=== PATIENT | male | born 1955 | race Two or more races ===

== ENCOUNTER 2021-09-09 07:10 | Inpatient (IN) | payer MEDICARE, MEDICAID ==
[~2021-09-09] VITALS: Ht 167.6 cm; Wt 54.4 kg
[2021-09-09] MEDS ORDERED: DEXTROSE 50% WATER 50ML SYRINGE IV ONE (08:00)
[2021-09-09] MEDS ORDERED: VANCOMYCIN 1G PREMIX 200 ML IV ONE (08:30)
[2021-09-09] MEDS ORDERED: SODIUM CHLORIDE 0.9% 1000ML BAG (SEPSIS BOLUS) IV ONE (08:30)
[2021-09-09] MEDS ORDERED: PIPERACILLIN/TAZ 3.375G PREMIX 50 ML IV ONE (08:30)
[2021-09-09 08:43] LABS: BASOPHILS % 0.3 % (0.0-2.0); EOSINOPHILS % 0.8 % (0.0-5.0); HEMATOCRIT. 21.6 % (42.0-52.0); HEMOGLOBIN. 7.3 g/dL (14.0-18.0); LYMPHOCYTES % 8.9 % (20.0-50.0); MEAN CORPUSCULAR HEMOGLOBIN 34.1 pg (28.0-32.0); MEAN CORPUSCULAR VOLUME 100.3 fL (80.0-94.0); MONOCYTES % 3.4 % (2.0-8.0); NEUTROPHILS % 86.6 % (40.0-76.0); PLATELET 79 x1000/uL (130-400); RED BLOOD CELL COUNT 2.15 mill/uL (4.7-6.1); RED CELL DISTRIBUTION WIDTH 22.5 % (11.6-14.6)
[2021-09-09 09:13] LABS: CLARITY URINE TURBID (CLEAR); COLOR URINE DARK YELLOW (YELLOW); KETONES URINE NEGATIVE (NEGATIVE); LEUKOCYTE ESTERASE URINE TRACE (NEGATIVE); NITRITE URINE NEGATIVE (NEGATIVE); OCCULT BLOOD URINE NEGATIVE (NEGATIVE); PROTEIN URINE NEGATIVE (NEGATIVE); SPECIFIC GRAVITY URINE 1.011 (1.005-1.030)
[2021-09-09 09:26] LABS: PLATELET ESTIMATE DECREASED
[2021-09-09] MEDS ORDERED: DEXT 10% WATER 1,000 ML IV STA (09:49)
[2021-09-09 10:23] LABS: INR 1.5; PARTIAL THROMBOPLASTIN TIME 49.3 sec (23.4-31.0)
[2021-09-09] MEDS ORDERED: GUAIFENESIN 200MG/10ML SUGAR FREE UDC PO PRN (10:45)
[2021-09-09] MEDS ORDERED: CLONIDINE 0.1MG TABLET PO PRN (10:45)
[2021-09-09] MEDS ORDERED: NITROGLYCERIN 0.4MG TABLET SL SL PRN (10:45)
[2021-09-09] MEDS ORDERED: ONDANSETRON HCL 4MG/2ML INJ IV PRN (10:45)
[2021-09-09] MEDS ORDERED: MAGNESIUM/ALUMINUM HYDROXIDE/SIMETHICONE 30ML UDC PO PRN (10:45)
[2021-09-09] MEDS ORDERED: DOCUSATE SODIUM 100MG CAPSULE PO PRN (10:45)
[2021-09-09] MEDS ORDERED: CEFTRIAXONE 1 G PREMIX 50 ML IV SCH (11:00)
[2021-09-09 11:10] LABS: ETHANOL BLOOD < 10 mg/dL
[2021-09-09 11:13] LABS: TOTAL IRON BINDING CAPACITY 162 ug/dL (250-450)
[2021-09-09] MEDS: DEXT 5%/LACTATED RINGERS 1,000 ML IV SCH (11:30)
[2021-09-09 11:31] LABS: FOLIC ACID (FOLATE) SERUM 4.1 ng/mL (>5.38)
[2021-09-09] MEDS: LACTULOSE 20G/30ML UDC PO SCH ×3 (12:06→20:43)
[2021-09-09] MEDS: INSULIN LISPRO 100 UNITS/ML SUBCUT SCH ×2 (13:20→20:48)
[2021-09-09] MEDS: BLOOD SUGAR DIAGNOSTIC STRIP TEST SCH ×3 (13:48→20:48)
[2021-09-09] MEDS ORDERED: LIDOCAINE HCL/PF 1% 10 MG/ML 5ML VIAL ONE ×2 (14:14→14:29)
[2021-09-09] MEDS ORDERED: SODIUM BICARBONATE 4% (2.4MEQ) 5ML VIAL IV ONE (14:30)
[2021-09-09 16:00] LABS: CREATINE KINASE MB FRACTION 7.9 ng/mL (0.5-3.6)
[2021-09-09 17:25] VITALS: BP 105/51
[2021-09-09 17:30] VITALS: BP 105/51
[2021-09-09] MEDS: DEXTROSE 50% WATER 50ML SYRINGE IV PRN ×2 (18:23→20:43)
[2021-09-09 20:00] VITALS: BP 120/42
[2021-09-09] MEDS: FAMOTIDINE 20MG TABLET PO SCH (20:48)
[2021-09-10] VITALS (13 sets, daily range): BP systolic 92–156; BP diastolic 44–89
[2021-09-10] MEDS: LACTULOSE 20G/30ML UDC PO SCH ×9 (00:11→23:22)
[2021-09-10] MEDS: DEXTROSE 50% WATER 50ML SYRINGE IV PRN ×2 (00:12→04:45)
[2021-09-10] MEDS: DEXT 5%/LACTATED RINGERS 1,000 ML IV SCH ×2 (00:12→13:58)
[2021-09-10] MEDS: IPRATROPIUM/ALBUTEROL 0.5-3(2.5)MG/3ML NEB NEB PRN ×2 (00:39→04:38)
[2021-09-10 01:10] LABS: CREATINE KINASE MB FRACTION 8.6 ng/mL (0.5-3.6)
[2021-09-10] MEDS: INSULIN LISPRO 100 UNITS/ML SUBCUT SCH ×4 (05:17→21:00)
[2021-09-10] MEDS: BLOOD SUGAR DIAGNOSTIC STRIP TEST SCH ×4 (05:19→21:21)
[2021-09-10 07:09] LABS: CHLORIDE 107 mEq/L (98-107)
[2021-09-10 07:15] LABS: BASOPHILS % 0.5 % (0.0-2.0); EOSINOPHILS % 0.9 % (0.0-5.0); LYMPHOCYTES % 8.5 % (20.0-50.0); MEAN CORPUSCULAR HEMOGLOBIN 34.3 pg (28.0-32.0); MEAN CORPUSCULAR VOLUME 100.2 fL (80.0-94.0); MEAN PLATELET VOLUME 7.7 fl (7.4-10.4); MONOCYTES % 7.7 % (2.0-8.0); NEUTROPHILS % 82.4 % (40.0-76.0); PLATELET 53 x1000/uL (130-400); RED BLOOD CELL COUNT 1.84 mill/uL (4.7-6.1)
[2021-09-10 07:16] LABS: PHOSPHORUS 3.2 mg/dL (2.5-4.9)
[2021-09-10 07:59] LABS: HEMOGLOBIN. 6.3 g/dL (14.0-18.0)
[2021-09-10 08:00] LABS: HEMATOCRIT. 18.4 % (42.0-52.0)
[2021-09-10] MEDS ORDERED: ALBUMIN HUMAN 25GM/100ML (25%) IV NR (12:00)
[2021-09-10] MEDS: MIDODRINE HCL 2.5MG TABLET PO SCH ×3 (12:01→16:45)
[2021-09-10] MEDS: CEFTRIAXONE 1,000 MG in DEXTROSE 5% WATER 50 ML IV SCH (14:06)
[2021-09-10] MEDS ORDERED: LACTULOSE 300 ML in WATER FOR IRRIGATION,STERILE 700 ML IR SCH ×2 (18:45→21:00)
[2021-09-10] MEDS ORDERED: LACTULOSE 300 ML in WATER FOR IRRIGATION,STERILE 700 ML IR NR (21:00)
[2021-09-10] MEDS: RIFAXIMIN 550 MG TABLET PO SCH (21:21)
[2021-09-10] MEDS: FAMOTIDINE 20MG TABLET PO SCH (21:21)
[2021-09-10] MEDS: ACETAMINOPHEN 325MG TABLET PO PRN (21:55)
[2021-09-11] VITALS (9 sets, daily range): BP systolic 96–142; BP diastolic 35–76
[2021-09-11] MEDS: DEXT 5%/LACTATED RINGERS 1,000 ML IV SCH ×3 (03:51→16:20)
[2021-09-11] MEDS: LACTULOSE 20G/30ML UDC PO SCH ×5 (03:51→20:43)
[2021-09-11] MEDS: INSULIN LISPRO 100 UNITS/ML SUBCUT SCH ×4 (07:30→21:42)
[2021-09-11] MEDS: BLOOD SUGAR DIAGNOSTIC STRIP TEST SCH ×4 (07:30→20:44)
[2021-09-11 08:33] LABS: SODIUM URINE RANDOM 33 mEq/L
[2021-09-11 08:37] LABS: BASOPHILS % 0.2 % (0.0-2.0); EOSINOPHILS % 0.7 % (0.0-5.0); HEMATOCRIT. 26.7 % (42.0-52.0); HEMOGLOBIN. 9.1 g/dL (14.0-18.0); LYMPHOCYTES % 7.8 % (20.0-50.0); MEAN CORPUSCULAR HEMOGLOBIN 32.2 pg (28.0-32.0); MEAN CORPUSCULAR VOLUME 93.9 fL (80.0-94.0); MEAN PLATELET VOLUME 7.8 fl (7.4-10.4); MONOCYTES % 4.9 % (2.0-8.0); NEUTROPHILS % 86.4 % (40.0-76.0); RED BLOOD CELL COUNT 2.84 mill/uL (4.7-6.1); RED CELL DISTRIBUTION WIDTH 20.9 % (11.6-14.6)
[2021-09-11 08:39] LABS: BG BASE EXCESS -4.9 mmol/L (-2.0-2.0); BG CARBOXYHEMOGLOBIN 0.3 % (0.5-1.5); BG DEOXYHEMOGLOBIN 1.6 % (0.0-5.0); BG FRACTION INSPIRED OXYGEN 21; BG HCO3 ACT 17.2 mmol/L (22.0-26.0); BG METHEMOGLOBIN 0.3 % (0.0-1.5); BG OXYGEN SATURATION 98.4 % (92.0-98.5); BG OXYHEMOGLOBIN 97.8 % (94.0-97.0); BG PCO2 23.2 mmHg (35.0-45.0); BG PH 7.488 (7.350-7.450); BG SAMPLE SITE RIGHT RADIAL; BG TOTAL HEMOGLOBIN 9.6 g/dL (12.0-18.0); BG VENT MODE ROOM AIR
[2021-09-11 08:46] LABS: CHLORIDE 112 mEq/L (98-107); INR 1.7; PROTHROMBIN TIME 17.6 sec (9.6-11.0)
[2021-09-11 08:52] LABS: PHOSPHORUS 3.2 mg/dL (2.5-4.9)
[2021-09-11 08:54] LABS: PLATELET 30 x1000/uL (130-400)
[2021-09-11] MEDS: RIFAXIMIN 550 MG TABLET PO SCH ×2 (10:02→20:43)
[2021-09-11] MEDS: MIDODRINE HCL 2.5MG TABLET PO SCH ×2 (10:02→12:54)
[2021-09-11] MEDS ORDERED: LACTULOSE 20G/30ML UDC ONE (12:44)
[2021-09-11] MEDS: LACTULOSE 300 ML in WATER FOR IRRIGATION,STERILE 700 ML IR SCH ×2 (12:49→12:59)
[2021-09-11] MEDS: CEFTRIAXONE 1,000 MG in DEXTROSE 5% WATER 50 ML IV SCH ×2 (12:54→13:00)
[2021-09-11] MEDS ORDERED: ALBUMIN HUMAN 25GM/100ML (25%) IV SCH (15:00)
[2021-09-11] MEDS: MIDODRINE HCL 5MG TABLET PO SCH (17:09)
[2021-09-11] MEDS: ACETAMINOPHEN 325MG TABLET PO PRN (20:43)
[2021-09-11] MEDS: FAMOTIDINE 20MG TABLET PO SCH (20:43)
[2021-09-12] VITALS: BP 100/57
[2021-09-12] MEDS: LACTULOSE 20G/30ML UDC PO SCH ×6 (00:40→21:28)
[2021-09-12 04:00] VITALS: BP 112/74
[2021-09-12 06:39] LABS: INR 1.8; PROTHROMBIN TIME 18.7 sec (9.6-11.0)
[2021-09-12] MEDS: DEXT 5%/LACTATED RINGERS 1,000 ML IV SCH (06:40)
[2021-09-12] MEDS: BLOOD SUGAR DIAGNOSTIC STRIP TEST SCH ×4 (06:40→21:29)
[2021-09-12 06:50] LABS: HEMATOCRIT. 26.4 % (42.0-52.0); HEMOGLOBIN. 9.1 g/dL (14.0-18.0); MEAN CORPUSCULAR HEMOGLOBIN 32.8 pg (28.0-32.0); MEAN CORPUSCULAR VOLUME 94.9 fL (80.0-94.0); MEAN PLATELET VOLUME 7.8 fl (7.4-10.4); RED BLOOD CELL COUNT 2.78 mill/uL (4.7-6.1); RED CELL DISTRIBUTION WIDTH 22.2 % (11.6-14.6)
[2021-09-12 06:50] LABS: PHOSPHORUS 2.6 mg/dL (2.5-4.9)
[2021-09-12 08:00] VITALS: BP 121/67
[2021-09-12] MEDS: MIDODRINE HCL 5MG TABLET PO SCH ×3 (09:14→19:15)
[2021-09-12] MEDS: RIFAXIMIN 550 MG TABLET PO SCH ×2 (09:14→21:28)
[2021-09-12] MEDS: INSULIN LISPRO 100 UNITS/ML SUBCUT SCH ×4 (09:17→21:00)
[2021-09-12 12:00] VITALS: BP 116/58
[2021-09-12] MEDS: DEXT 5%/0.2% NACL 1,000 ML IV SCH (13:24)
[2021-09-12] MEDS: MEROPENEM 1,000 MG in SODIUM CHLORIDE 0.9% 100 ML IV SCH ×2 (13:24→21:28)
[2021-09-12 15:55] LABS: PLATELET ESTIMATE MARKEDLY DECREASED
[2021-09-12 15:56] LABS: PLATELET 32 x1000/uL (130-400)
[2021-09-12 16:00] VITALS: BP 115/67
[2021-09-12 20:00] VITALS: BP 118/62
[2021-09-12] MEDS: FAMOTIDINE 20MG TABLET PO SCH (21:28)
[2021-09-13] VITALS: BP 149/81
[2021-09-13 04:00] VITALS: BP 100/51
[2021-09-13] MEDS: LACTULOSE 20G/30ML UDC PO SCH ×6 (05:30→16:00)
[2021-09-13] MEDS: BLOOD SUGAR DIAGNOSTIC STRIP TEST SCH ×4 (06:44→21:00)
[2021-09-13] MEDS: INSULIN LISPRO 100 UNITS/ML SUBCUT SCH ×4 (07:22→21:00)
[2021-09-13 07:23] LABS: INR 1.9; PROTHROMBIN TIME 19.3 sec (9.6-11.0)
[2021-09-13 07:29] LABS: BASOPHILS % 0.2 % (0.0-2.0); EOSINOPHILS % 1.5 % (0.0-5.0); HEMATOCRIT. 26.5 % (42.0-52.0); HEMOGLOBIN. 9.1 g/dL (14.0-18.0); LYMPHOCYTES % 7.5 % (20.0-50.0); MEAN CORPUSCULAR HEMOGLOBIN 32.7 pg (28.0-32.0); MEAN CORPUSCULAR VOLUME 95.6 fL (80.0-94.0); MEAN PLATELET VOLUME 8.3 fl (7.4-10.4); MONOCYTES % 6.4 % (2.0-8.0); NEUTROPHILS % 84.4 % (40.0-76.0); RED BLOOD CELL COUNT 2.78 mill/uL (4.7-6.1); RED CELL DISTRIBUTION WIDTH 22.3 % (11.6-14.6)
[2021-09-13 08:00] VITALS: BP 110/50
[2021-09-13] MEDS: RIFAXIMIN 550 MG TABLET PO SCH ×2 (09:17→23:05)
[2021-09-13] MEDS: MEROPENEM 1,000 MG in SODIUM CHLORIDE 0.9% 100 ML IV SCH (09:17)
[2021-09-13] MEDS: MIDODRINE HCL 5MG TABLET PO SCH ×3 (09:17→18:04)
[2021-09-13] MEDS: DEXT 5%/0.2% NACL 1,000 ML IV SCH (09:18)
[2021-09-13 12:00] VITALS: BP 110/62
[2021-09-13 15:43] LABS: PLATELET ESTIMATE MARKEDLY DECREASED
[2021-09-13 15:44] LABS: PLATELET 33 x1000/uL (130-400)
[2021-09-13 16:00] VITALS: BP 112/67
[2021-09-13 20:00] VITALS: BP_SYST 98; BP_DIAS 49; BP_DIAS 52
[2021-09-13] MEDS: FAMOTIDINE 20MG TABLET PO SCH (21:00)
[2021-09-14] MEDS: LACTULOSE 20G/30ML UDC PO SCH ×5 (02:18→22:02)
[2021-09-14] MEDS: MEROPENEM 1,000 MG in SODIUM CHLORIDE 0.9% 100 ML IV SCH ×3 (02:27→22:03)
[2021-09-14 07:07] LABS: BASOPHILS % 0.4 % (0.0-2.0); EOSINOPHILS % 0.9 % (0.0-5.0); HEMOGLOBIN. 7.9 g/dL (14.0-18.0); LYMPHOCYTES % 7.9 % (20.0-50.0); MEAN CORPUSCULAR HEMOGLOBIN 32.9 pg (28.0-32.0); MEAN CORPUSCULAR VOLUME 96.1 fL (80.0-94.0); MEAN PLATELET VOLUME 7.7 fl (7.4-10.4); MONOCYTES % 8.6 % (2.0-8.0); NEUTROPHILS % 82.2 % (40.0-76.0); RED BLOOD CELL COUNT 2.39 mill/uL (4.7-6.1); RED CELL DISTRIBUTION WIDTH 21.9 % (11.6-14.6)
[2021-09-14 07:14] LABS: INR 1.8; PROTHROMBIN TIME 18.9 sec (9.6-11.0)
[2021-09-14] MEDS: BLOOD SUGAR DIAGNOSTIC STRIP TEST SCH ×4 (07:20→21:00)
[2021-09-14 07:48] LABS: PLATELET 23 x1000/uL (130-400)
[2021-09-14] MEDS: INSULIN LISPRO 100 UNITS/ML SUBCUT SCH ×4 (07:50→21:00)
[2021-09-14 08:00] VITALS: BP 91/62
[2021-09-14] MEDS: MIDODRINE HCL 5MG TABLET PO SCH ×3 (08:35→18:00)
[2021-09-14] MEDS: RIFAXIMIN 550 MG TABLET PO SCH ×2 (08:36→22:03)
[2021-09-14 12:00] VITALS: BP 104/64
[2021-09-14] MEDS ORDERED: POTASSIUM CHLORIDE 20MEQ TABLET SR PO NR (12:45)
[2021-09-14 16:00] VITALS: BP 109/68
[2021-09-14] MEDS: PHYTONADIONE 10MG/ML AMP SUBCUT SCH (18:00)
[2021-09-14] MEDS: DEXT 5%/0.2% NACL 1,000 ML IV SCH (18:15)
[2021-09-14 20:00] VITALS: BP 114/53
[2021-09-14] MEDS: ACETAMINOPHEN 325MG TABLET PO PRN (22:03)
[2021-09-14] MEDS: FAMOTIDINE 20MG TABLET PO SCH (22:03)
[2021-09-15] VITALS: BP 118/66
[2021-09-15] MEDS: DEXT 5%/0.2% NACL 1,000 ML IV SCH ×2 (00:06→21:42)
[2021-09-15] MEDS: LACTULOSE 20G/30ML UDC PO SCH ×6 (00:09→21:40)
[2021-09-15] MEDS: ACETAMINOPHEN 325MG TABLET PO PRN (03:52)
[2021-09-15 04:00] VITALS: BP 108/61
[2021-09-15 06:35] LABS: HEMATOCRIT. 21.9 % (42.0-52.0); HEMOGLOBIN. 7.7 g/dL (14.0-18.0); MEAN CORPUSCULAR HEMOGLOBIN 33.6 pg (28.0-32.0); MEAN CORPUSCULAR VOLUME 95.3 fL (80.0-94.0); RED BLOOD CELL COUNT 2.29 mill/uL (4.7-6.1); RED CELL DISTRIBUTION WIDTH 21.9 % (11.6-14.6)
[2021-09-15 06:58] LABS: INR 1.6; PROTHROMBIN TIME 16.9 sec (9.6-11.0)
[2021-09-15 07:01] LABS: PHOSPHORUS 2.4 mg/dL (2.5-4.9)
[2021-09-15] MEDS: INSULIN LISPRO 100 UNITS/ML SUBCUT SCH ×4 (07:50→22:12)
[2021-09-15 08:00] VITALS: BP 94/51
[2021-09-15] MEDS: BLOOD SUGAR DIAGNOSTIC STRIP TEST SCH ×4 (08:15→21:00)
[2021-09-15] MEDS: MEROPENEM 1,000 MG in SODIUM CHLORIDE 0.9% 100 ML IV SCH ×2 (08:40→21:41)
[2021-09-15] MEDS: MIDODRINE HCL 5MG TABLET PO SCH ×3 (08:40→16:59)
[2021-09-15] MEDS: PHYTONADIONE 10MG/ML AMP SUBCUT SCH (08:40)
[2021-09-15] MEDS: RIFAXIMIN 550 MG TABLET PO SCH ×2 (08:40→21:40)
[2021-09-15 09:35] LABS: PLATELET ESTIMATE MARKEDLY DECREASED
[2021-09-15 09:37] LABS: MEAN PLATELET VOLUME 7.9 fl (7.4-10.4)
[2021-09-15 09:38] LABS: PLATELET 27 x1000/uL (130-400)
[2021-09-15 12:00] VITALS: BP 89/42
[2021-09-15] MEDS ORDERED: POTASSIUM PHOS,M-BASIC-D-BASIC 10 MMOL in DEXT 5% WATER 246.6667 ML IV NR (12:00)
[2021-09-15 16:00] VITALS: BP 101/57
[2021-09-15 20:00] VITALS: BP 95/56
[2021-09-15] MEDS: PANTOPRAZOLE SODIUM 40 MG/VIAL IV SCH (21:41)
[2021-09-16] VITALS (14 sets, daily range): BP systolic 91–117; BP diastolic 55–72
[2021-09-16] MEDS: LACTULOSE 20G/30ML UDC PO SCH ×6 (00:34→21:23)
[2021-09-16 07:13] LABS: INR 1.4; PROTHROMBIN TIME 14.4 sec (9.6-11.0)
[2021-09-16 07:26] LABS: PHOSPHORUS 3.4 mg/dL (2.5-4.9)
[2021-09-16 07:31] LABS: BASOPHILS % 0.3 % (0.0-2.0); EOSINOPHILS % 3.3 % (0.0-5.0); HEMATOCRIT. 23.8 % (42.0-52.0); HEMOGLOBIN. 8.3 g/dL (14.0-18.0); MEAN CORPUSCULAR VOLUME 95.2 fL (80.0-94.0); MEAN PLATELET VOLUME 7.6 fl (7.4-10.4); MONOCYTES % 12.2 % (2.0-8.0); NEUTROPHILS % 76.2 % (40.0-76.0); RED CELL DISTRIBUTION WIDTH 22.5 % (11.6-14.6)
[2021-09-16] MEDS: INSULIN LISPRO 100 UNITS/ML SUBCUT SCH ×4 (07:50→21:33)
[2021-09-16] MEDS: BLOOD SUGAR DIAGNOSTIC STRIP TEST SCH ×4 (08:07→21:23)
[2021-09-16] MEDS: PANTOPRAZOLE SODIUM 40 MG/VIAL IV SCH ×2 (09:39→21:22)
[2021-09-16] MEDS: MEROPENEM 1,000 MG in SODIUM CHLORIDE 0.9% 100 ML IV SCH ×2 (09:39→21:22)
[2021-09-16] MEDS: PHYTONADIONE 10MG/ML AMP SUBCUT SCH (09:39)
[2021-09-16] MEDS: MIDODRINE HCL 5MG TABLET PO SCH ×3 (09:39→17:00)
[2021-09-16] MEDS ORDERED: DEXAMETHASONE 4MG/ML 1ML VIAL ONE ×2 (15:53→15:57)
[2021-09-16] MEDS ORDERED: ONDANSETRON HCL 4MG/2ML INJ ONE ×2 (15:54→15:57)
[2021-09-16] MEDS ORDERED: PROPOFOL 200MG/20ML VIAL IV ONE (15:57)
[2021-09-16] MEDS ORDERED: LIDOCAINE HCL/PF 1% 10 MG/ML 5ML VIAL ONE (15:57)
[2021-09-16] MEDS: DEXT 5%/0.2% NACL 1,000 ML IV SCH (16:05)
[2021-09-17] VITALS (10 sets, daily range): BP systolic 87–118; BP diastolic 42–71
[2021-09-17] MEDS: LACTULOSE 20G/30ML UDC PO SCH ×5 (00:28→16:18)
[2021-09-17] MEDS: BLOOD SUGAR DIAGNOSTIC STRIP TEST SCH ×2 (06:50→12:44)
[2021-09-17 08:04] LABS: HEMATOCRIT. 23.9 % (42.0-52.0); HEMOGLOBIN. 8.1 g/dL (14.0-18.0); MEAN CORPUSCULAR HEMOGLOBIN 32.6 pg (28.0-32.0); MEAN CORPUSCULAR VOLUME 96.5 fL (80.0-94.0); MEAN PLATELET VOLUME 7.6 fl (7.4-10.4); RED BLOOD CELL COUNT 2.48 mill/uL (4.7-6.1); RED CELL DISTRIBUTION WIDTH 22.6 % (11.6-14.6)
[2021-09-17] MEDS: INSULIN LISPRO 100 UNITS/ML SUBCUT SCH ×2 (08:11→12:42)
[2021-09-17 08:30] LABS: PLATELET 29 x1000/uL (130-400)
[2021-09-17] MEDS: PANTOPRAZOLE SODIUM 40 MG/VIAL IV SCH (08:32)
[2021-09-17] MEDS: PHYTONADIONE 10MG/ML AMP SUBCUT SCH (08:33)
[2021-09-17] MEDS: MIDODRINE HCL 5MG TABLET PO SCH ×2 (08:34→13:00)
[2021-09-17 09:57] LABS: PLATELET 43 x1000/uL (130-400)
[2021-09-17 10:07] LABS: PLATELET ESTIMATE MARKEDLY DECREASED
[2021-09-17] MEDS: DEXT 5%/0.2% NACL 1,000 ML IV SCH (12:44)
== END 2021-09-17 17:42 | disposition home or self-care (01) | DRG 441 ==
LOC: ER 07:10 → ENRESERV 10:07 → CANRESERV 10:07 → EDBEDREQSVC 10:57 → ENRESERV 15:25 → 6WST 18:10
PROVIDERS: ADMIT Internal Medicine; ATTEND Internal Medicine
PROC: 05HY33Z Insertion of Infusion Device into Upper Vein, Percutaneous Approach (ICD-10-PCS; 2021-09-09)
PROC: B54MZZA Ultrasonography of Right Upper Extremity Veins, Guidance (ICD-10-PCS; 2021-09-09)
PROC: 0W9G3ZZ Drainage of Peritoneal Cavity, Percutaneous Approach (ICD-10-PCS; 2021-09-09)
PROC: 30233N1 Transfusion of Nonautologous Red Blood Cells into Peripheral Vein, Percutaneous Approach (ICD-10-PCS; 2021-09-11)
PROC: 0W3P8ZZ Control Bleeding in Gastrointestinal Tract, Via Natural or Artificial Opening Endoscopic (ICD-10-PCS; principal; 2021-09-16)
PROC: 30233K1 Transfusion of Nonautologous Frozen Plasma into Peripheral Vein, Percutaneous Approach (ICD-10-PCS; 2021-09-16)
PROC: 30233R1 Transfusion of Nonautologous Platelets into Peripheral Vein, Percutaneous Approach (ICD-10-PCS; 2021-09-16)
DX: K72.90 Hepatic failure, unspecified without coma (principal); E43 Unspecified severe protein-calorie malnutrition; K76.7 Hepatorenal syndrome; K29.71 Gastritis, unspecified, with bleeding; N17.0 Acute kidney failure with tubular necrosis; K31.82 Dieulafoy lesion (hemorrhagic) of stomach and duodenum; E87.1 Hypo-osmolality and hyponatremia; D68.4 Acquired coagulation factor deficiency; Z68.1 Body mass index [BMI] 19.9 or less, adult; R18.8 Other ascites; N39.0 Urinary tract infection, site not specified; E11.649 Type 2 diabetes mellitus with hypoglycemia without coma; E83.51 Hypocalcemia; E11.65 Type 2 diabetes mellitus with hyperglycemia; E78.00 Pure hypercholesterolemia, unspecified; K74.60 Unspecified cirrhosis of liver; D69.6 Thrombocytopenia, unspecified; Z20.822 Contact with and (suspected) exposure to COVID-19; D75.89 Other specified diseases of blood and blood-forming organs; K44.9 Diaphragmatic hernia without obstruction or gangrene; B96.20 Unspecified Escherichia coli [E. coli] as the cause of diseases classified elsewhere; D52.9 Folate deficiency anemia, unspecified; M46.40 Discitis, unspecified, site unspecified; I12.9 Hypertensive chronic kidney disease with stage 1 through stage 4 chronic kidney disease, or unspecified chronic kidney disease; E11.22 Type 2 diabetes mellitus with diabetic chronic kidney disease; N18.2 Chronic kidney disease, stage 2 (mild); Z82.49 Family history of ischemic heart disease and other diseases of the circulatory system; Z79.1 Long term (current) use of non-steroidal anti-inflammatories (NSAID); D50.0 Iron deficiency anemia secondary to blood loss (chronic)
CPT/HCPCS: 36415; 36600; 49083; 71045; 76700; 76937; 80048; 80053; 80076; 80320; 81003; 82140; 82270; 82375; 82550; 82553; 82607; 82728; 82746; 82805; 82962; 83036; 83540; 83550; 83605; 83735; 83935; 84100; 84145; 84300; 84443; 84484; 85018; 85025; 85044; 85384; 85611; 86850; 86900; 86920; 86927; 86945; 87075; 87077; 87186; 87426; 93005; 93970; 94640; 99291; A6261; C1725; C1887; C9113; J0696; J1100; J1815; J2185; J2405; J2543; J2704; J3370; J3430; J3490; J7030; J7040; J7050; J7060; P9016; P9017; P9034; P9047; G0480